=== PATIENT | male | born 1980 | race Caucasian/White ===

== ENCOUNTER 2017-12-20 10:38 | Emergency (ER) | payer BC ==
--- OUTSIDE RECORDS SUMMARY | 2017-12-20 10:55 | XMS REPORT | Continuity of Care Document ---
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 June PayID: [id number] [address] [address] [place] [address] Advance Directives Description No Information Available Problems Description No Information Family History Date Family Member(s) Problem(s) Comments Father 63 Social History Type Date Description Comments Sex Unknown Tobacco Use Start: Unknown Never Smoked Cigarettes ETOH Use Never used alcohol Recreational Drug Use Never Used Drugs Allergies, Adverse Reactions, Alerts Date Description Reaction Status Severity Comments 11/14/2017 Amoxicillin Hives Active Moderate 11/14/2017 Seasonal Active Medications Medication Date Status Form Strength Qnty SIG Indications Ordering Provider Cetirizine HCL Active 1 by mouth Unknown 0 every day Latanoprost Active Unknown 0 Immunizations Description No Information Available Vital Signs Date Vital Result Comment 12/19/2017 3:42pm Weight 308.00 lb Height 74.5 inches 6'2.50" BMI (Body Mass Index) 39.0 kg/m2 BP Systolic 141 mmHg BP Diastolic 85 mmHg Heart Rate 88 /min O2 % BldC Oximetry 96 % Body Temperature 98.4 F Pain Level 0 11/14/2017 3:42pm Weight 311.00 lb Height 74.5 inches 6'2.50" BMI (Body Mass Index) 39.4 kg/m2 BP Systolic 137 mmHg BP Diastolic 85 mmHg Heart Rate 85 /min O2 % BldC Oximetry 97 % Body Temperature 98.0 F [place] Score 1 Neck Circumference in inches 18.5 Pain Level 0 Results Description No Information Available Procedures Date Code Description Status 11/18/2017 75391 Sleep Study, Simultaneous Recording Of Completed Ventilation,Unattended 11/14/2017 67107 Fiberoptic Laryngoscopy,Diag. Completed Encounters Type Date Location Provider Dx Diagnosis Office Visit 11/14/2017 3:30p Main Office Darell Graf M.D. J31.0 Chronic rhinitis J34.2 Deviated nasal septum R06.83 Snoring G47.9 Sleep disorder, unspecified E66.9 Obesity, unspecified Plan of Treatment No Information Available
--- OUTSIDE RECORDS SUMMARY | 2017-12-20 10:55 | XMS REPORT | Continuity of Care Document ---
:1980 External Reference #:[id number] Author Name Mai Holt NP Address [address] [place] [address] Care Team Providers Name Role Phone Elma Bear FNP Care Team Information Explosive Man Unavailable Elma Bear FNP Primary Care Physician Unavailable Payers Type Date Identification Numbers Payment Provider Subscriber Policy Number: [id number] [facility] June PayID: [id number] [place] [address] Advance Directives Description No Information Available Problems [...] Oximetry 97 % Body Temperature 98.0 F Timbo Score 1 Neck Circumference in inches 18.5 Pain Level 0 Results Description No Information Available Procedures Date Code Description Status 11/18/2017 40693 Sleep Study, Simultaneous Recording Of Completed Ventilation,Unattended 11/14/2017 40593 Fiberoptic Laryngoscopy,Diag. Completed Encounters Type Date Location Provider Dx Diagnosis Office Visit 12/19/2017 Main Office Mai Holt, G47.33 Obstructive sleep 3:45p [facility] apnea (adult) (pediatric) Office Visit 11/14/2017 Main Office Darell Graf M.D. J31.0 Chronic rhinitis 3:30p J34.2 Deviated nasal septum R06.83 Snoring G47.9 Sleep disorder, unspecified E66.9 Obesity, unspecified Plan of Treatment No Information Available
--- NOTE | 2017-12-20 11:02 | UC ---
Lower Extremity/Ankle HPI - HPI Summary HPI Summary: 37 y/o male present to the urgent care c/o Rt ankle pain radiating to the foot for the past 2 days . Pt reports He is moving from his Apt 2 days ago and he did a lot of heavy lifting. He might had twisted his ankle, but he can't recall. Pain started after he finished moving. But yesterday worsen w/ standing and waliking. 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 Pain is 4/10 and sharp w/ moving and walking. Pt has taking Tylenol PO to alleviate symptoms. Pain is better when he elevated his ankle and at rest. Pt denies numbness or tingling sensation, recent exercise, no recent antibiotics, SOB, calf pain, chest pain, abdominal pain, N/V/D. or Hx of DVT or gout. - History of Current Complaint Stated Complaint: RIGHT ANKLE INJURY Time Seen by Provider: 12/20/17 11:00 Hx Obtained From: Patient Onset/Duration: Sudden Onset, Lasting Days - 2 days, Still Present, Worse Since - today Severity Initially: Mild Severity Currently: Mild Pain Intensity: 4 Pain Scale Used: 0-10 Numeric Aggravating Factor(s): Ambulation Alleviating Factor(s): Rest, Elevation, OTC Meds Able to Bear Weight: Yes - Risk Factors Gout Risk Factors: Negative DVT Risk Factors: Negative Septic Arthritis Risk Factor: Negative - Allergies/Home Medications Allergies/Adverse Reactions: Allergies Allergy/AdvReac Type Severity Reaction Status Date / Time amoxicillin Allergy Rash Verified 12/20/17 10:58 PMH/Surg Hx/FS Hx/Imm Hx Previously Healthy: Yes Endocrine History: Dyslipidemia - diet control Other Respiratory History: sleep apnea GI/ History: Kidney Stones - Family History Known Family History: Positive: Cardiac Disease, Hypertension, Diabetes Family History: Dementia - Social History Occupation: Employed Full-time Lives: With Family Review of Systems Constitutional: Negative Skin: Other - left ankle medial side swelling Eyes: Negative ENT: Negative Respiratory: Negative Cardiovascular: Negative Gastrointestinal: Negative Genitourinary: Negative Motor: Negative Neurovascular: Negative Musculoskeletal: Decreased ROM - left ankle, Other: - left ankle pain Neurological: Negative Psychological: Negative Is Patient Immunocompromised?: No All Other Systems Reviewed And Are Negative: Yes Physical Exam - Summary Physical Exam Summary: Vital Signs Reviewed: Yes General: well developed, well nourished obese male, sitting in the examining table w/o any apparent distress Eyes: Positive: Conjunctiva Clear - PERRLA, EOMI, ENT: Positive: Normal ENT inspection, Hearing grossly normal, Pharynx normal, TMs normal Neck: Positive: Supple, Nontender, No Lymphadenopathy Respiratory: Positive: Chest non-tender, Lungs clear, Normal breath sounds, No respiratory distress Cardiovascular: Positive: RRR, No Murmur, Pulses Normal, Brisk Capillary Refill Abdomen Description: Positive: Nontender, No Organomegaly, Soft. Negative: CVA Tenderness (R), CVA Tenderness (L) Bowel Sounds: Positive: Present Musculoskeletal: :RT Ankle: Pt is able to bear weight and ambulate w/ limping. The R ankle is without obvious asymmetry or deformity when compared to the L ankle. Decreased ROM due to pain. mild swelling at the medial malleolus, with tenderness to palpation. No ecchymosis or bruising observed. No tenderness to palpation over the lateral malleolus , no swelling observed. Talar tilt test is negative for ligament laxity to valgus or varus stress. Negative anterior drawer. Peroneal nerve is intact with strong eversion and plantar flexion. Positive sensation over the Rt foot and Rt ankle, positive pulses, capillary refill intact Neurological Exam: Normal Psychological Exam: Normal Skin: warm and dry Triage Information Reviewed: Yes Lower Extremity Course/Dx - Course Course Of Treatment: 37 y/o male present to the urgent care c/o Rt ankle pain radiating to the foot for the past 2 days . Pt reports He is moving from his Apt 2 days ago and he did a lot of heavy lifting. He might had twisted his ankle , but he can't recall. Pain started after he finished moving. But yesterday worsen w/ standing and waliking. 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 Pain is 4/10 and sharp w/ moving and walking. Pt has taking Tylenol PO to alleviate symptoms. Pain is better when he elevated his ankle and at rest. Pt denies numbness or tingling sensation, recent exercise, no recent antibiotics, SOB, calf pain, chest pain, abdominal pain, N/V/D. or Hx of DVT or gout.Hx obtained.Rt ankle X- ray ordered, Impression: Soft tissue swelling, no acute fracture. Pt most likely with a RT ankle Sprain. Pt immobilized with gel ankle splint and treva bandage by the nurse. Rx Ibuprofen PO to decrease swelling and pain. Pt advised RICE, take Ibuprofen PO for pain and to f/u with PCP on orthopedic in 1 week if not improvement of symptoms for further treatment. Pt's BP is elevated today advised to decrease salt in diet, monitor BP and f/u with PCP for further management. Pt understood and agreed and left the clinic ambulating. - Differential Dx/Diagnosis Differential Diagnosis/HQI/PQRI: Contusion, Fracture (Closed), Gout, Infection, Sprain, Strain, Tendonitis Provider Diagnoses: 1- Right ankle pain. 2- Rt anbkle sprain. 3- Elevated BP w/o Hx of HTN Discharge - Sign-Out/Discharge Documenting (check all that apply): Patient Departure - D/c home All imaging exams completed and their final reports reviewed: Yes - Discharge Plan Condition: Stable Disposition: HOME Prescriptions: Ibuprofen TAB* [Motrin TAB* 800 MG] 800 mg PO Q6H PRN #30 tab PRN Reason: Pain Patient Education Materials: Ankle Sprain (ED), Low-Sodium Diet (ED) Forms: *Work Release Referrals: Christie Bear NP [Primary Care Provider] - 1 Week Lisa Lynne MD [Medical Doctor] - 1 Week Additional Instructions: 1-Please take medications as directed to alleviate pain and swelling. 2-Please apply ice, keep your ankle immobilized with the splint. Elevate your ankle and avoid strenuous exercise or standing for long periods of time. 3- Please f/u with Orthopedic Dr Woodall or your PCP in 1 week is not improvement of symptoms for further evaluation and treatment. 4-Your BP is elevated today. please decrease salt in your diet, monitor BP and if it continues to be elevated please f/u with your PCP for further management - Billing Disposition and Condition Condition: STABLE Disposition: Home
[2017-12-20 11:03] VITALS: BP 140/84
--- NOTE | 2017-12-20 12:12 | RAD ---
INDICATION: Right ankle pain. TECHNIQUE: 3 views of the right ankle were obtained. FINDINGS: There is medial soft tissue swelling. The bones are normal. No fracture is seen. IMPRESSION: SOFT TISSUE SWELLING, NO FRACTURE IS SEEN.
== END 2017-12-20 12:31 | disposition home or self-care (01) ==
LOC: UCCORT 10:38
DX: S93.401A Sprain of unspecified ligament of right ankle, initial encounter (principal); X50.0XXA Overexertion from strenuous movement or load, initial encounter; Y93.89 Activity, other specified; Y92.039 Unspecified place in apartment as the place of occurrence of the external cause; R03.0 Elevated blood-pressure reading, without diagnosis of hypertension; Z88.0 Allergy status to penicillin
CPT/HCPCS: 99203; G0463